=== PATIENT | female | born 1990 | race Two or more races ===

== ENCOUNTER 2018-12-26 23:21 | Outpatient (CLI) | payer OTHER ==
[2018-12-27 00:29] LABS: CLARITY,URINE CLEAR (Clear); COLOR,URINE YELLOW (Yellow); GLUCOSE, URINE NEGATIVE (Neg); KETONES,URINE NEGATIVE (Neg); LEUKOCYTE ESTERASE ,URINE NEGATIVE (Neg); NITRITES, URINE NEGATIVE (Neg); OCCULT BLOOD,URINE NEGATIVE (Neg); PH,URINE 5.5 (4.8-8.0); PROTEIN,URINE NEGATIVE (Neg); UROBILINOGEN,URINE 0.2 E.U/dL (0.2-1.0)
[2018-12-27 00:31] LABS: BASOPHILS # (AUTO) 0.1 X10'3 (0-0.2); BASOPHILS % (AUTO) 0.6 % (0-1); EOSINOPHILS # (AUTO) 0.2 X10'3 (0-0.9); EOSINOPHILS % (AUTO) 2.2 % (0-6); HEMATOCRIT 39.2 % (35.0-45.0); HEMOGLOBIN 13.5 g/dl (12.0-16.0); LYMPHOCYTES # (AUTO) 2.8 X10'3 (1.1-4.8); LYMPHOCYTES % (AUTO) 27.5 % (21-51); MEAN CORPUSCULAR HEMOGLOBIN 29.1 PG (27.0-31.0); MEAN CORPUSCULAR HGB CONC 34.4 g/dL (33.0-36.5); MEAN CORPUSCULAR VOLUME 84.7 FL (78-98); MEAN PLATELET VOLUME 8.7 FL (7.4-10.4); MONOCYTES # (AUTO) 0.7 X10'3 (0-0.9); MONOCYTES % (AUTO) 6.6 % (2-12); NEUTROPHILS # (AUTO) 6.4 X10'3 (1.8-7.7); NEUTROPHILS % (AUTO) 63.1 % (42-75); PLATELET COUNT 260 X10'3 (140-440); RED BLOOD COUNT 4.63 X10'6 (4.20-5.60); RED CELL DISTRIBUTION WIDTH 13.4 % (11.5-14.5); WHITE BLOOD COUNT 10.2 X10'3 (4.5-11.0)
[2018-12-27 00:33] LABS: UA COLLECTION TYPE CLN CATCH MIDSTREAM
[2018-12-28 07:21] LABS: RUBELLA ANTIBODIES, IGG 20.8 index (Immune >0.99)
== END 2018-12-26 23:59 | disposition home or self-care (01) ==
LOC: LAB 23:21
PROVIDERS: ATTEND Family Medicine
DX: Z32.00 Encounter for pregnancy test, result unknown (principal)
CPT/HCPCS: 36415; 81003; 85025; 86762; 86900; 86901

== ENCOUNTER 2019-06-02 12:24 | Emergency (ER) | payer OTHER ==
[~2019-06-02] VITALS: Ht 162.6 cm; Wt 80.0 kg
[2019-06-02 12:30] VITALS: BP 136/85
[2019-06-02] MEDS ORDERED: gentamicin 0.3% ophthalmic drops 5ML EACHEYE ONE (12:40)
[2019-06-02] MEDS ORDERED: AZIT-63 PO (13:18)
[2019-06-02] MEDS ORDERED: GENT5DRO4 EACHEYE (13:18)
== END 2019-06-02 13:35 | disposition home or self-care (01) ==
LOC: ER 12:24
DX: O99.513 Diseases of the respiratory system complicating pregnancy, third trimester (principal); J06.9 Acute upper respiratory infection, unspecified; O26.893 Other specified pregnancy related conditions, third trimester; H10.9 Unspecified conjunctivitis; Z3A.38 38 weeks gestation of pregnancy; Z79.82 Long term (current) use of aspirin
CPT/HCPCS: 87502; 87503; 99283

== ENCOUNTER 2020-03-29 17:11 | Emergency (ER) | payer OTHER ==
[~2020-03-29 17:11] MED LIST: GENT5DRO4 EACHEYE
== END 2020-03-29 17:36 | disposition home or self-care (01) ==
LOC: ER 17:15 → EEVIPCON 17:15 → ER 17:36
DX: J06.9 Acute upper respiratory infection, unspecified (principal); Z20.828 Contact with and (suspected) exposure to other viral communicable diseases
CPT/HCPCS: 36415; 87635; 99283

== ENCOUNTER 2020-10-17 19:08 | Emergency (ER) | payer BC, OTHER ==
[~2020-10-17] VITALS: Ht 162.6 cm; Wt 60.0 kg
[2020-10-17 19:37] VITALS: BP 110/63
== END 2020-10-17 22:54 | disposition home or self-care (01) ==
LOC: ER 19:09
DX: B34.9 Viral infection, unspecified (principal); Z20.822 Contact with and (suspected) exposure to COVID-19; Z79.2 Long term (current) use of antibiotics
CPT/HCPCS: 87502; 87503; 87635; 99283; C9803

== ENCOUNTER 2020-12-14 21:24 | Emergency (ER) | payer BC ==
[~2020-12-14] VITALS: Ht 162.6 cm; Wt 59.1 kg
[2020-12-14 21:31] VITALS: BP 151/82
--- NOTE | 2020-12-14 21:38 | NUR ---
X RAY AT BEDSIDE
[2020-12-14] MEDS ORDERED: DICL100G30 TOP (22:05)
== END 2020-12-14 22:16 | disposition home or self-care (01) ==
LOC: ER 21:25
DX: S93.492A Sprain of other ligament of left ankle, initial encounter (principal); M25.572 Pain in left ankle and joints of left foot; Z79.2 Long term (current) use of antibiotics; Z79.899 Other long term (current) drug therapy; W50.2XXA Accidental twist by another person, initial encounter; Y93.89 Activity, other specified; Y92.89 Other specified places as the place of occurrence of the external cause; Y99.8 Other external cause status
CPT/HCPCS: 29515; 73610; 99283

== ENCOUNTER 2023-03-22 01:43 | Emergency (ER) | payer SELFPAY ==
[~2023-03-22] VITALS: Ht 160 cm; Wt 59.5 kg
[~2023-03-22 01:43] MED LIST changes: +DICL100G59 TOP; +GENT5DRO22 EACHEYE; -GENT5DRO4 EACHEYE
[2023-03-22 01:50] VITALS: BP 119/82; PULSE 91; RESP 16; TEMP 98.6; O2SAT 97
[2023-03-22] MEDS ORDERED: ondansetron 4mg rapidly disintigrating tab PO ONE (02:05)
[2023-03-22] MEDS ORDERED: amox tr/potassium clavulanate 500mg/125mg TAB PO ONE (02:05)
[2023-03-22] MEDS ORDERED: ibuprofen tablet 400 MG TABLET PO ONE (02:05)
[2023-03-22] MEDS ORDERED: AMOX-115 PO (02:06)
== END 2023-03-22 02:53 | disposition home or self-care (01) ==
LOC: ER 01:43
DX: H66.91 Otitis media, unspecified, right ear (principal); M79.89 Other specified soft tissue disorders; Z79.899 Other long term (current) drug therapy
CPT/HCPCS: 71045; 99284

== ENCOUNTER 2023-07-03 17:30 | Emergency (ER) | payer SELFPAY ==
[~2023-07-03] VITALS: Ht 162.6 cm; Wt 60.9 kg
[2023-07-03 18:20] LABS: BILIRUBIN,URINE NEGATIVE (Neg); CLARITY,URINE CLOUDY (Clear); COLOR,URINE YELLOW (Yellow); GLUCOSE, URINE NEGATIVE (Neg); KETONES,URINE NEGATIVE (Neg); LEUKOCYTE ESTERASE ,URINE SMALL (Neg); NITRITES, URINE NEGATIVE (Neg); OCCULT BLOOD,URINE TRACE-INTACT (Neg); PH,URINE 7.5 (4.8-8.0); PROTEIN,URINE NEGATIVE (Neg)
[2023-07-03 18:31] LABS: UA COLLECTION TYPE NON-SPECIFIED
[2023-07-03 18:32] LABS: SQUAMOUS EPITHELIAL CELL,UR FEW /LPF (FEW); TRANSITIONAL EPI CELLS,URINE FEW /HPF
[2023-07-03 18:33] LABS: BACTERIA,URINE 1+ /HPF (Neg); RBC,URINE 0-2 /HPF (0-2); WBC CLUMPS,URINE FEW /HPF (NEGATIVE)
[2023-07-03] MEDS ORDERED: acetaminophen 325mg tablet PO STA (19:03)
[2023-07-03] MEDS ORDERED: piperacillin/tazo 3.375gm/50ml 50 ML IV ONE (19:05)
[2023-07-03] MEDS ORDERED: CefTRIAXone 2gm/D5W 50ml BAG 50 ML IV ONE (19:05)
[2023-07-03] MEDS ORDERED: normal saline 1000ML IV soln IV ONE (19:05)
[2023-07-03] MEDS ORDERED: fentaNYL/PF 50MCG/1 ML 2ML syringe IV ONE (19:10)
[2023-07-03] MEDS ORDERED: ondansetron/PF 4mg/2ml inj IV ONE (19:10)
[2023-07-03] MEDS ORDERED: ketorolac trometh. 30mg/ml inj. IV ONE (19:10)
[2023-07-03] MEDS ORDERED: pantoprazole 40 MG vial IV ONE (19:10)
[2023-07-03] MEDS ORDERED: iohexol 300mg/ml 100ml inj. ONE (19:23)
[2023-07-03 19:40] LABS: BASOPHILS # (AUTO) 0.1 X10'3 (0-0.2); BASOPHILS % (AUTO) 0.9 % (0-1); EOSINOPHILS % (AUTO) 0.4 % (0-6); HEMATOCRIT 42.3 % (35.0-45.0); HEMOGLOBIN 14.1 g/dl (12.0-16.0); LYMPHOCYTES # (AUTO) 1.3 X10'3 (1.1-4.8); LYMPHOCYTES % (AUTO) 13.5 % (21-51); MEAN CORPUSCULAR HEMOGLOBIN 28.3 PG (27.0-31.0); MEAN CORPUSCULAR HGB CONC 33.2 g/dL (33.0-36.5); MEAN CORPUSCULAR VOLUME 85.2 FL (78-98); MEAN PLATELET VOLUME 8.2 FL (7.4-10.4); MONOCYTES # (AUTO) 0.8 X10'3 (0-0.9); MONOCYTES % (AUTO) 8.9 % (2-12); NEUTROPHILS # (AUTO) 7.3 X10'3 (1.8-7.7); NEUTROPHILS % (AUTO) 76.3 % (42-75); PLATELET COUNT 276 X10'3 (140-440); RED BLOOD COUNT 4.97 X10'6 (4.20-5.60); RED CELL DISTRIBUTION WIDTH 13.1 % (11.5-14.5); WHITE BLOOD COUNT 9.5 X10'3 (4.5-11.0)
[2023-07-03 20:01] LABS: ANION GAP 8 (8-16); BLOOD UREA NITROGEN 9 MG/DL (7-18); CALCIUM 9.3 MG/DL (8.5-10.1); CHLORIDE 101 MMOL/L (99-107); CREATININE 0.75 MG/DL (0.40-0.90); GLUCOSE 109 MG/DL (70-104); LIPASE 39 U/L (16-77); MAGNESIUM 2.4 MG/DL (1.5-2.4); POTASSIUM 4.1 MMOL/L (3.5-5.1); SODIUM 134 MMOL/L (135-145); TOTAL CARBON DIOXIDE 25.5 MMOL/L (24-32); eCRCL 92 ML/MIN; eGFR 89 ML/MIN
[2023-07-03] MEDS ORDERED: CEPH-585 PO (22:27)
[2023-07-03] MEDS ORDERED: ACET-1025 PO (22:27)
[2023-07-03] MEDS ORDERED: NITR100C6 PO (22:27)
[2023-07-03] MEDS ORDERED: ONDA4TAB12 PO (22:27)
[2023-07-03] MEDS ORDERED: NAPR-56 PO (22:27)
[2023-07-03 22:45] VITALS: BP 122/73; PULSE 72; RESP 18; TEMP 98.8; O2SAT 99
== END 2023-07-03 22:47 | disposition home or self-care (01) ==
LOC: ER 17:31
DX: N12 Tubulo-interstitial nephritis, not specified as acute or chronic (principal); Z79.1 Long term (current) use of non-steroidal anti-inflammatories (NSAID); Z79.899 Other long term (current) drug therapy
CPT/HCPCS: 36415; 71045; 74177; 80048; 81001; 83605; 83690; 83735; 84145; 85025; 87040; 93005; 96365; 96366; 96368; 96375; 99285; C9113; J0696; J1885; J2405; J2543; J3490; J7030; Q9967

== ENCOUNTER 2025-04-11 14:24 | Emergency (ER) | payer OTHER ==
[~2025-04-11] VITALS: Ht 162.6 cm; Wt 60.9 kg
[~2025-04-11 14:24] MED LIST changes: +GEN0.3OS EACHEYE; -GENT5DRO22 EACHEYE; +NITR100C6 PO; +ONDA-243 PO
[2025-04-11 14:26] VITALS: BP 138/95; RESP 18; TEMP 98.3; O2SAT 95
[2025-04-11] MEDS: LIDOcaine 1% W/epiNEPHrine 1:100,000 20ml vial IJ ONE (15:15)
[2025-04-11] MEDS: TETanus/Pertussis (Acell)/Diphther VAC/PF (Tdap-Adult) 0.5ml syringe IMVAC ONE (15:18)
[2025-04-11] MEDS: bacitracin 15gm ointment TP ONE (15:19)
--- NOTE | 2025-04-11 16:35 | Physician Documentation ---
History of Present Illness ~ Chief Complaint: Finger pain Stated Complaint: HAND LAC Time Seen by MD: 14:38 OK to notify your PCP?: Yes Primary Medical Doctor: CARMENCITA GRIER Source: patient Mode of Arrival: POV Exam Limitations: no limitations HPI Presents with right pinky pain and laceration after trying to open a can. Bleeding controlled with the pressure. Last tetanus unknown. Has not taken any medications prior to arrival for pain. Tetanus within 5 years: No Medication Reconciliation Allergies: Coded Allergies: No Known Allergies (Unverified , 04/11/25) Scheduled Diclofenac Sodium (Diclofenac Sodium), 1 APPLIC TOP Q6H Gentamicin Sulfate (Gentak), 2 DROP EACHEYE TID Nitrofurantoin Monohyd/M-Cryst (Macrobid 100 mg Capsule), 1 CAP PO Q12H Scheduled PRN ONDANSETRON ODT 4mg tablet (Ondansetron Odt), 1 TAB PO Q6H PRN PRN for nausea/vomiting Past Medical History Past Medical History: UTI Past Surgical History: no surgical history Last Menstrual Period: Mar 22, 2025 Alcohol Use: None Drug Use: none Lives with: Spouse Lives In: Home Occupation: employed Review of Systems All Other Systems at this time: Reviewed and Negative Physical Exam Vital Signs: RN Vital Signs have been reviewed: Yes, Temperature: 98.3, Source: Temporal, Respiratory Rate: 18, BP: 138/95, Pulse Oximetry: 95, Weight: 60.910 Oxygen Flow Rate: 0 Pulse Oximetry Reflects: adequate oxygenation Physical Exam General: Alert, no distress. HEENT: No injection, moist mucous membranes. Neck: Full range of motion. Respiratory: No respiratory distress, equal chest rise and fall. Chest: No accessory muscle use. Cardiovascular: Regular rate and rhythm. Gastrointestinal: Nondistended. Extremities: Normal range of motion, no deformity. Neurologic: Oriented x4. Psychiatric: Normal mood and affect. Skin: 1.5 cm superficial laceration to tip of right pinky finger, actively bleeding. Procedures Procedures Obtained verbal consent from patient for laceration repair to pinky finger. Laceration Repair : Location: Right pinky finger Length (cm): 1.5 Anesthesia: Lidocaine w/ Epi (intrathecal block) Volume Anesthetic (mls): 1 Prep: betadine, irrigated by nurse Debrided: minimal Undermining: none Margins: flaps aligned Foreign Body: not identified Repaired: skin Wound Repaired With: sutures Suture Size/Type: 4-0, ethilon Number of Superficial Sutures: 4 Layer Closure?: No Dressing Applied: simple, bacitracin, non-adherent Splint Applied?: No Sling Applied?: No Tolerated Procedure Well?: yes, no complications Progress Results/Orders Reviewed/noted all lab results: Yes Results/Orders Orders - IRISH BENNETT Laceration/I&D Tray Set Up (04/11/25 14:41) Completed Orders - IRISH BENNETT Lidocaine 1% W/Epi 1:100,000 (Xylocaine (04/11/25 14:45) Tetanus/Pertuss/Diph Acell/Pf (Boostrix (04/11/25 14:45) Bacitracin Ointment (Bacitracin Ointment (04/11/25 14:45) Medications Received in ER Medications (Trade) Dose Ordered Sig/Nayana Route PRN Reason Start Time Stop Time Status Last Admin Dose Admin (Boostrix vaccine syringe) 0.5 ml ONCE ONCE IMVAC 04/11/25 14:45 04/11/25 14:46 DC 04/11/25 15:18 0.5 ML (bacitracin ointment) 1 applic ONCE ONCE TP 04/11/25 14:45 04/11/25 14:46 DC 04/11/25 15:19 1 APPLIC Vital Signs 04/11/25 14:26 Temp 98.3 Resp 18 B/P (MAP) 138/95 Pulse Ox 95 O2 Flow Rate 0 Medical Decision Making Additional information obtaine: old records, family Findings Superficial laceration to right pinky finger. Placed for simple interrupted sutures. Updated tetanus vaccine while here. Discharge instructions given to patient. General Diff Dx:Considerations: Include: Neurovascular injury, Open fracture Shoulder Diff Dx:Consideration: Include: Other Elbow Diff Dx:Considerations: Include: Other Wrist Diff Dx:Considerations: Include: Other Hand Diff Dx:Considerations: Include: Other Finger Diff Dx:Considerations: Include: Abrasion, Dislocation, Laceration, Neurovascular injury, Open fracture Departure Disposition: 01 HOME / SELF CARE / HOMELESS Impression: Primary Impression: Accidental laceration Condition: Stable Discharge Instructions: Laceration Care, Adult, [id number] Additional Instructions: You have 4 sutures to the tip of the left pinky finger. Please return to the emergency department or to your primary care doctor in 10-14 days to have your sutures removed. Return to the emergency department earlier if you develop any new or worsening symptoms such as fevers, if you see pus coming from the wound, or if you develop redness around the wound that extends beyond beyond 1 in from the wound edges as these can be signs of a wound infection. Please call your doctor for a follow-up appointment in 2-3 days to determine the need for further evaluation. Please use the bacitracin for the next couple of days to prevent infection. You were given a tetanus shot today. Referrals: NO PRIMARY CARE PROVIDER (PCP) Education Educated: Patient, Family Educated regarding: diagnosis, treatment, prognosis, need for follow up Additional Comment Medical Screen Exam This patient recieved a medical screening examination. After reviewing the individual's medical complaints with presenting symptoms and performing an appropriate physical examination, it was determined that no immediate life- threatening emergency medical condition is present. This individual is also not a women having contractions. Signature Scribe Signature: . Attestation: Scribed for Irish Bennett Battery Assembler by Irish Dozier NP . 04/11/25 16:50 Parts of this note were created using [employer] voice recognition software program. While efforts were made to correct any mistakes made by this voice recognition software program, nonsensical phrases may remain in this note. In addition, there may be errors and syntax, grammar, content and spelling. IRISH BENNETTP Apr 11, 2025 16:35
== END 2025-04-11 17:30 | disposition home or self-care (01) ==
LOC: ER 14:24
DX: S61.216A Laceration without foreign body of right little finger without damage to nail, initial encounter (principal); X58.XXXA Exposure to other specified factors, initial encounter; Y93.89 Activity, other specified; Y92.89 Other specified places as the place of occurrence of the external cause; Y99.8 Other external cause status
CPT/HCPCS: 12001; 90471; 90715; 99283; A6258; A6449